=== PATIENT | male | born 1985 | race Caucasian/White ===

== ENCOUNTER 2018-01-08 20:17 | Emergency (ER) | payer OTHER ==
[~2018-01-08] VITALS: Ht 180.3 cm; Wt 93.8 kg
[2018-01-08 21:00] VITALS: BP 126/79
--- NOTE | 2018-01-08 21:02 | PHYS DOC ---
Past History Past Medical History: Other Past Surgical History: No Surgical History Alcohol Use: Occasionally Drug Use: None Adult General Chief Complaint Chief Complaint: CHEST PAIN HPI HPI Patient is a 32-year-old male presenting to the emergency department for evaluation of left arm numbness tingling that has been going on for the past 4- 5 days. Patient says that he feels a vague tingling sensation in his axilla spreads to his left biceps and left thumb and index finger. He says that he has intermittent numbness in these areas as well and it can last for up to 10- 15 minutes and then goes away on its own. He is very healthy and says that he runs 2-3 miles a day including today and this did not affect his symptoms at all. He denies any recent manipulations or injuries or overuse that he can think of. Patient is in no obvious distress with normal vital signs. He has a negative perc score and he has no signs or symptoms of acute coronary syndrome or dissection. Review of Systems Review of Systems Constitutional: Denies fever or chills [] Respiratory: Denies cough or shortness of breath [] Cardiovascular: No additional information not addressed in HPI [] GI: Denies abdominal pain, nausea, vomiting, bloody stools or diarrhea [] Musculoskeletal: Denies back pain or joint pain [] Neurologic: Denies headache, focal weakness. + sensory changes [] All other systems were reviewed and found to be within normal limits, except as documented in this note. Allergies Allergies Allergies Coded Allergies Type Severity Reaction Last Updated Verified azathioprine Allergy Unknown 01/08/18 Yes Physical Exam Physical Exam Constitutional: Well developed, well nourished, no acute distress, non-toxic appearance. [] Eyes: PERRLA, EOMI, conjunctiva normal, no discharge. [] Neck: Normal range of motion, no tenderness, supple, no stridor. [] Cardiovascular:Heart rate regular rhythm, no murmur [] Lungs & Thorax: Bilateral breath sounds clear to auscultation [] Abdomen: Bowel sounds normal, soft, no tenderness, no masses, no pulsatile masses. [] Skin: Warm, dry, no erythema, no rash. [] Back: No tenderness, no CVA tenderness. [] Extremities: No tenderness, no cyanosis, no clubbing, ROM intact, no edema. [] Neurologic: Alert and oriented X 3, normal motor function, normal sensory function, no focal deficits noted. [] Current Patient Data Vital Signs Vital Signs Date Time Temp Pulse Resp B/P (MAP) Pulse Ox O2 Delivery O2 Flow Rate FiO2 01/08/18 20:17 97.9 71 14 99 Room Air EKG EKG Sinus rhythm at 67 beats per minutes with normal axis no obvious ST elevation or depression and normal T waves. Radiology/Procedures Radiology/Procedures Chest x-ray shows normal mediastinum and normal heart size no obvious free air pneumothorax or opacity Course & Med Decision Making Course & Med Decision Making Patient does not actually complain of chest pain rather he says that he feels these odd sensations in his left arm. I suspect this is more of a peripheral nerve issue than related to a dissection acute coronary syndrome ischemic stroke or other acute emergent pathology. Other considerations are multiple sclerosis or cervical radiculopathy. Given patient appears well with normal vital signs benign physical exam and workup with normal neurologic exam he'll be discharged in stable condition told to follow with primary care provider for further workup and come back to the ED sooner with worsening pain or other general concerns. Dragon Disclaimer Dragon Disclaimer This electronic medical record was generated, in whole or in part, using a voice recognition dictation system. Departure Departure: Impression: Primary Impression: Radiculopathy Disposition: 01 HOME, SELF-CARE Condition: STABLE Patient Instructions: Cervical Radiculopathy Additional Instructions: YOUR SYMPTOMS ARE MOST CONSISTENT WITH A RADICULOPATHY. YOU SHOULD FOLLOW WITH YOUR PRIMARY CARE PROVIDER. COME BACK WITH ANY NEW OR WORSENING SYMPTOMS. THANK YOU! Problem Qualifiers Primary Impression: Radiculopathy Spinal region: cervical Qualified Codes: M54.12 - Radiculopathy, cervical region BORA ARRINGTON DO Jan 08, 2018 21:02
--- NOTE | 2018-01-09 06:20 | EKG ---
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
--- NOTE | 2018-01-09 08:21 | RAD ---
Chest, 2 views, 01/08/2018: History: Chest pain The heart size and pulmonary vascularity are normal. No pulmonary infiltrate is seen. There is no evidence of pleural fluid. IMPRESSION: No acute cardiopulmonary abnormality is detected.
== END 2018-01-08 21:10 | disposition home or self-care (01) ==
LOC: ER 20:17
DX: M54.12 Radiculopathy, cervical region (principal); Z88.8 Allergy status to other drugs, medicaments and biological substances
CPT/HCPCS: 71046; 93005; 99284